=== PATIENT | female | born 1990 | race Caucasian/White ===

== ENCOUNTER → 2022-08-15 | Outpatient (CLI) | payer OTHER ==
--- NOTE | 2022-08-15 10:17 | DIREP ---
PROCEDURE:MRI JOINT UPPER EXTREMITY-RT W/O COMPARISON:None. INDICATIONS:M25.511 RIGHT SHOULDER PAIN TECHNIQUE:A variety of imaging planes and parameters were utilized for visualization of suspected pathology. Images were performed without intravenous gadolinium contrast. FINDINGS: ROTATOR CUFF:Mild tendinosis of the supraspinatus insertion without visible tear. Mild tendinosis of the infraspinous insertion. Teres minor and subscapularis tendons are intact. BICEPS TENDON:Normal MUSCLES:Rotator cuff muscles are within normal limits. LIGAMENTS:Visualized portions of the inferior glenohumeral ligament are intact. The middle and superior ligaments not well seen and cannot be characterized. Coracoclavicular ligament is intact. LABRUM:No visible displaced tear on this non arthrogram study. AC JOINT:Normal. GLENOHUMERAL JT: No joint effusion. No dislocation. Subacromial interval within normal limits. Subcoracoid interval within normal limits. ACROMION:Morphology is type 1. No os acromiale. BONES:No fracture or space-occupying mass. OTHER:Minimal fluid in the subacromial subdeltoid bursa. CONCLUSION: 1. Mild tendinosis of the supraspinatus and infraspinous tendons. Small amount of fluid in the subacromial subdeltoid bursa, correlate for bursitis. Dictated by: Taye Tobias M.D. on 08/15/2022 at 10:10 AM
== END | disposition home or self-care (01) ==
LOC: RAD 08:14
PROVIDERS: ATTEND Orthopaedic Surgery
DX: M67.813 Other specified disorders of tendon, right shoulder (principal); M25.511 Pain in right shoulder
CPT/HCPCS: 73221-RT

== ENCOUNTER → 2022-10-21 | Outpatient (CLI) | payer SELFPAY ==
[2022-10-21 12:03] LABS: MEAN CORP HGB 27.4 pg (26-34); RED CELL DISTRIBUTION WIDTH 12.5 % (11.5-14.5)
== END | disposition home or self-care (01) ==
LOC: LAB 11:40
PROVIDERS: ATTEND Nurse Practitioner Women's Health
DX: Z11.3 Encounter for screening for infections with a predominantly sexual mode of transmission (principal); N92.6 Irregular menstruation, unspecified
CPT/HCPCS: 36415; 84439; 84443; 85027; 86592; 86703; 86803